=== PATIENT | female | born 1995 | race Caucasian/White ===

== ENCOUNTER 2016-05-24 18:01 | Emergency (ER) | payer OTHER ==
[~2016-05-24] VITALS: Ht 160 cm; Wt 54.5 kg
[~2016-05-24 18:01] MED LIST: AMOXICILLIN250 MG PO; BACTRIM,SEPT1 TABLET PO; FEOSOL325 MG PO; FLAGYL500 MG PO; IBUPROFEN800 MG PO; MACROBID100 MG PO; NOHOMEMEDS; PYRIDIUM100 MG PO; TYLENOL EXTRA500 MG PO; ZOFRAN4 MG PO
[2016-05-24 22:59] VITALS: BP 149/81
== END 2016-05-24 23:01 | disposition home or self-care (01) ==
LOC: EME 18:01
PROC: 0HQ3XZZ Repair Left Ear Skin, External Approach (ICD-10-PCS; principal; 2016-05-24)
PROC: 3E0234Z Introduction of Serum, Toxoid and Vaccine into Muscle, Percutaneous Approach (ICD-10-PCS; 2016-05-24)
DX: S01.312A Laceration without foreign body of left ear, initial encounter (principal); S40.021A Contusion of right upper arm, initial encounter; S40.022A Contusion of left upper arm, initial encounter; S50.12XA Contusion of left forearm, initial encounter; S20.212A Contusion of left front wall of thorax, initial encounter; S40.811A Abrasion of right upper arm, initial encounter; S40.812A Abrasion of left upper arm, initial encounter; M25.532 Pain in left wrist; Y09 Assault by unspecified means; Z23 Encounter for immunization; F17.200 Nicotine dependence, unspecified, uncomplicated
CPT/HCPCS: 71020; 73110; 99281; 99284

== ENCOUNTER 2016-10-31 16:59 | Emergency (ER) | payer SELFPAY ==
[~2016-10-31] VITALS: Ht 167.6 cm; Wt 62.0 kg
[2016-10-31 17:37] LABS: HEMATOCRIT 32.7 % (36.0-46.0); MCH 23.6 PG (29.0-34.0); MCHC 30.6 G/DL (30.0-36.0); MCV 77.3 FL (83-99); MEAN PLAT.VOLUME 10.4 uM^3 (9.5-12.4); PLATELET COUNT 482 K/uL (156-360); RBC DIS.WIDTH-CV 16.3 % (11.8-14.6); RBC DIS.WIDTH-SD 45.7 % (39-53); RED BLOOD COUNT 4.23 M/uL (3.80-5.20)
[2016-10-31 17:47] LABS: CHLORIDE 103 mEq/L (99-109); POTASSIUM 3.4 mEq/L (3.7-5.4); SODIUM 139 mEq/L (136-147)
[2016-10-31 17:49] LABS: GLUCOSE 135 mg/dL (70-99)
[2016-10-31 17:50] LABS: ANION GAP 16 MEQ/L (2-14)
[2016-10-31 17:52] LABS: SERUM ETHYL ALCOHOL 202 mg/dL
[2016-10-31 17:53] LABS: GFR ESTIMATE (CALCULATED) > 59 mL/min/
[2016-10-31 17:54] LABS: UREA NITROGEN (BUN) 13 mg/dL (9-23)
[2016-10-31 19:27] LABS: QUANTITATIVE HCG < 4.0 MIU/ML
[2016-10-31] MEDS ORDERED: NARCAN4 MG NS (21:52)
[2016-10-31 22:05] LABS: ADD MEDTOX COMMENT Y; AMPHETAMINE NEGATIVE (500 ng/mL); BARBITURATES NEGATIVE (200 ng/mL); BENZODIAZEPINES NEGATIVE (150 ng/mL); COCAINE PRESUMPTIVE POSITIVE (150 ng/mL); INTERNAL CONTROLS VALID? YES; METHADONE NEGATIVE (200 ng/mL); METHAMPHETAMINE NEGATIVE (500 ng/mL); OPIATES (MORPHINE) NEGATIVE (100 ng/mL); OXYCODONE NEGATIVE (100 ng/mL); PHENCYCLIDINE NEGATIVE (25 ng/mL); PROPOXYPHENE NEGATIVE (300 ng/mL); THC CANNABINOIDS NEGATIVE (50 ng/mL); TRICYCLIC ANTIDEPRESSANTS NEGATIVE (300 ng/mL)
[2016-10-31 22:51] VITALS: BP 107/62
== END 2016-10-31 22:52 | disposition home or self-care (01) ==
LOC: EDBD 16:59 → EME 16:59
PROVIDERS: Emergency Medicine
DX: E86.0 Dehydration (principal); F12.10 Cannabis abuse, uncomplicated; F17.200 Nicotine dependence, unspecified, uncomplicated
CPT/HCPCS: 80048; 84702; 84999; 85027; 93005; 99281; 99285; G0480; J2310; J7030

== ENCOUNTER 2016-12-22 10:54 | Inpatient (IN) | payer OTHER ==
[~2016-12-22] VITALS: Ht 160 cm; Wt 63.5 kg
[~2016-12-22 10:54] MED LIST changes: +NARCAN4 MG NS
[2016-12-22 11:38] LABS: HEMATOCRIT 37.1 % (36.0-46.0); MCH 22.4 PG (29.0-34.0); MCHC 30.7 G/DL (30.0-36.0); MCV 72.9 FL (83-99); MEAN PLAT.VOLUME 10.4 uM^3 (9.5-12.4); PLATELET COUNT 245 K/uL (156-360); RBC DIS.WIDTH-CV 17.4 % (11.8-14.6); RBC DIS.WIDTH-SD 44.8 % (39-53); RED BLOOD COUNT 5.09 M/uL (3.80-5.20); WHITE BLOOD COUNT 21.2 K/uL (4.1-10.2)
[2016-12-22 11:47] LABS: CHLORIDE 95 mEq/L (99-109); POTASSIUM 3.6 mEq/L (3.7-5.4); SODIUM 133 mEq/L (136-147)
[2016-12-22 11:49] LABS: GLUCOSE 123 mg/dL (70-99)
[2016-12-22 11:50] LABS: ANION GAP 16 MEQ/L (2-14)
[2016-12-22 11:53] LABS: GFR ESTIMATE (CALCULATED) > 59 mL/min/; UREA NITROGEN (BUN) 9 mg/dL (9-23)
[2016-12-22 12:23] LABS: ADD MIUA? YES; BILIRUBIN NEGATIVE; BLOOD SMALL; COLOR YELLOW ((YELLOW)); GLUCOSE (STRIP) NEGATIVE; KETONES NEGATIVE; LEUKOCYTES LARGE; NITRITE POSITIVE; PROTEIN (STRIP) 100; UROBILINOGEN 0.2 MG/DL (0.2-1.0)
[2016-12-22 12:36] LABS: BACTERIA 2+ /HPF; EPITHELIAL CELLS 3+ /HPF; MUCUS NONE SEEN /LPF; RED BLOOD CELLS 0-5 /HPF (0-5); UCUL ADDED? YES; WHITE BLOOD CELLS TNTC /HPF (0-5)
[2016-12-22 14:09] LABS: BASOPHIL COUNT 0.1 K/uL (0-0.1); EOSINOPHIL (%) 0 % (0-5); IMMATURE GRANULOCYTE (%) 2.7 % (0.0-0.7); IMMATURE GRANULOCYTE COUNT 0.6 K/uL; INSTRUMENT ABS NEUTROPHIL CT 17.7 K/uL; LYMPHOCYTE COUNT 0.6 K/uL (1.0-2.8); MONOCYTE (%) 9.8 % (3-12); MONOCYTE COUNT 2.1 K/uL (0-0.8); NEUTROPHIL (%) 84.6 % (45-76); NEUTROPHIL COUNT 17.7 K/uL (1.8-6.4)
[2016-12-22 14:14] LABS: AMPHETAMINE NEGATIVE (500 ng/mL); BARBITURATES NEGATIVE (200 ng/mL); BENZODIAZEPINES NEGATIVE (150 ng/mL); COCAINE NEGATIVE (150 ng/mL); INTERNAL CONTROLS VALID? YES; METHADONE NEGATIVE (200 ng/mL); METHAMPHETAMINE NEGATIVE (500 ng/mL); OPIATES (MORPHINE) NEGATIVE (100 ng/mL); OXYCODONE NEGATIVE (100 ng/mL); PHENCYCLIDINE NEGATIVE (25 ng/mL); PROPOXYPHENE NEGATIVE (300 ng/mL); THC CANNABINOIDS PRESUMPTIVE POSITIVE (50 ng/mL); TRICYCLIC ANTIDEPRESSANTS NEGATIVE (300 ng/mL)
[2016-12-22 14:15] LABS: ADD MEDTOX COMMENT Y
[2016-12-22 14:15] LABS: TOTAL BILIRUBIN 0.6 mg/dL (0.0-1.0)
[2016-12-22 14:16] LABS: ALKALINE PHOSPHATASE 113 IU/L (3-129)
[2016-12-22 14:19] LABS: DIRECT BILIRUBIN 0.3 mg/dL (0.0-0.3)
[2016-12-22 14:20] LABS: LIPASE 13 U/L (1.0-51.0)
[2016-12-22 16:12] LABS: QUANTITATIVE HCG < 4.0 MIU/ML
[2016-12-22] MEDS ORDERED: DEPO-PROVER150 MG/ML IM (17:21)
[2016-12-22] MEDS ORDERED: BENADRYL25 MG PO (17:21)
[2016-12-23 03:17] VITALS: BP 105/59
[2016-12-23 06:51] LABS: HEMATOCRIT 28.9 % (36.0-46.0); MCH 21.8 PG (29.0-34.0); MCHC 29.8 G/DL (30.0-36.0); MCV 73.2 FL (83-99); MEAN PLAT.VOLUME 10.7 uM^3 (9.5-12.4); PLATELET COUNT 203 K/uL (156-360); RBC DIS.WIDTH-CV 17.2 % (11.8-14.6); RBC DIS.WIDTH-SD 45.4 % (39-53); WHITE BLOOD COUNT 16.4 K/uL (4.1-10.2)
[2016-12-23 06:53] LABS: RED BLOOD COUNT 3.95 M/uL (3.80-5.20)
[2016-12-23 07:04] LABS: ANION GAP 10 MEQ/L (2-14); CHLORIDE 106 MEQ/L (99-109); GFR ESTIMATE (CALCULATED) > 59 mL/min/; POTASSIUM 3.4 MEQ/L (3.7-5.4); SAMPLE HEMOLYSIS CHECK 0; SAMPLE ICTERIC CHECK 0; SAMPLE LIPEMIA CHECK 0; SODIUM 136 MEQ/L (136-147); UREA NITROGEN (BUN) 7 mg/dL (9-23)
[2016-12-23 07:09] LABS: GLUCOSE 89 mg/dL (70-99)
[2016-12-23 08:17] VITALS: BP 118/64
[2016-12-23 11:34] VITALS: BP 109/59
[2016-12-23 16:36] VITALS: BP 126/71
[2016-12-24 00:07] VITALS: BP 125/81
[2016-12-24 06:19] LABS: EOSINOPHIL (%) 1.8 % (0-5); EOSINOPHIL COUNT 0.2 K/uL (0-0.3); HEMATOCRIT 28.1 % (36.0-46.0); IMMATURE GRANULOCYTE (%) 1.3 % (0.0-0.7); IMMATURE GRANULOCYTE COUNT 0.2 K/uL; INSTRUMENT ABS NEUTROPHIL CT 8.9 K/uL; LYMPHOCYTE COUNT 0.9 K/uL (1.0-2.8); MCH 21.7 PG (29.0-34.0); MCHC 29.5 G/DL (30.0-36.0); MCV 73.4 FL (83-99); MEAN PLAT.VOLUME 10.4 uM^3 (9.5-12.4); MONOCYTE (%) 11.3 % (3-12); MONOCYTE COUNT 1.3 K/uL (0-0.8); NEUTROPHIL (%) 77.7 % (45-76); NEUTROPHIL COUNT 8.9 K/uL (1.8-6.4); PLATELET COUNT 203 K/uL (156-360); RBC DIS.WIDTH-CV 17.4 % (11.8-14.6); RBC DIS.WIDTH-SD 45.7 % (39-53); RED BLOOD COUNT 3.83 M/uL (3.80-5.20); WHITE BLOOD COUNT 11.4 K/uL (4.1-10.2)
[2016-12-24 08:00] VITALS: BP 145/95
[2016-12-24 08:11] LABS: ANION GAP 11 MEQ/L (2-14); CHLORIDE 111 MEQ/L (99-109); GFR ESTIMATE (CALCULATED) > 59 mL/min/; GLUCOSE 91 mg/dL (70-99); MAGNESIUM 1.3 mg/dl (1.3-2.7); POTASSIUM 3.8 MEQ/L (3.7-5.4); SAMPLE HEMOLYSIS CHECK 0; SAMPLE ICTERIC CHECK 0; SAMPLE LIPEMIA CHECK 0; SODIUM 141 MEQ/L (136-147); UREA NITROGEN (BUN) 7 mg/dL (9-23)
[2016-12-24 12:40] VITALS: BP 134/90
[2016-12-24 13:20] LABS: CHLAMYDIA TRACHOMATIS NEGATIVE; NEISSERIA GONORRHOEAE NEGATIVE
[2016-12-24 15:32] VITALS: BP 128/87
[2016-12-24 19:04] VITALS: BP 135/89
[2016-12-24 23:15] VITALS: BP 123/89
[2016-12-25 04:30] VITALS: BP 132/94
[2016-12-25 06:14] LABS: HEMATOCRIT 28.4 % (36.0-46.0); MCH 22.1 PG (29.0-34.0); MCHC 30.6 G/DL (30.0-36.0); MCV 72.3 FL (83-99); MEAN PLAT.VOLUME 10.5 uM^3 (9.5-12.4); RBC DIS.WIDTH-CV 17.4 % (11.8-14.6); RBC DIS.WIDTH-SD 45.4 % (39-53); RED BLOOD COUNT 3.93 M/uL (3.80-5.20); WHITE BLOOD COUNT 10.4 K/uL (4.1-10.2)
[2016-12-25 06:15] LABS: PLATELET COUNT 284 K/uL (156-360)
[2016-12-25 06:19] LABS: ANION GAP 10 MEQ/L (2-14); CHLORIDE 106 MEQ/L (99-109); GFR ESTIMATE (CALCULATED) > 59 mL/min/; GLUCOSE 80 mg/dL (70-99); POTASSIUM 3.6 MEQ/L (3.7-5.4); SAMPLE HEMOLYSIS CHECK 0; SAMPLE ICTERIC CHECK 0; SAMPLE LIPEMIA CHECK 0; SODIUM 136 MEQ/L (136-147); UREA NITROGEN (BUN) 7 mg/dL (9-23)
[2016-12-25 06:53] VITALS: BP 124/69
[2016-12-25 08:02] VITALS: BP 128/68
[2016-12-25 10:20] VITALS: BP 131/89
[2016-12-25 15:12] VITALS: BP 126/80
[2016-12-25 23:20] VITALS: BP 141/92
[2016-12-26 07:03] LABS: HEMATOCRIT 28.2 % (36.0-46.0); MCH 22.2 PG (29.0-34.0); MCHC 31.2 G/DL (30.0-36.0); MCV 71.2 FL (83-99); MEAN PLAT.VOLUME 10.1 uM^3 (9.5-12.4); PLATELET COUNT 323 K/uL (156-360); RBC DIS.WIDTH-CV 17.3 % (11.8-14.6); RBC DIS.WIDTH-SD 44.5 % (39-53); RED BLOOD COUNT 3.96 M/uL (3.80-5.20); WHITE BLOOD COUNT 9.3 K/uL (4.1-10.2)
[2016-12-26 07:07] LABS: ANION GAP 8 MEQ/L (2-14); CHLORIDE 106 MEQ/L (99-109); GFR ESTIMATE (CALCULATED) > 59 mL/min/; GLUCOSE 93 mg/dL (70-99); POTASSIUM 3.5 MEQ/L (3.7-5.4); SAMPLE HEMOLYSIS CHECK 0; SAMPLE ICTERIC CHECK 0; SAMPLE LIPEMIA CHECK 0; SODIUM 138 MEQ/L (136-147); UREA NITROGEN (BUN) 4 mg/dL (9-23)
[2016-12-26 07:15] VITALS: BP 140/82
[2016-12-26 07:32] VITALS: BP 130/77
[2016-12-26 10:33] VITALS: BP 115/73
[2016-12-26 15:25] VITALS: BP 108/58
[2016-12-26 23:11] VITALS: BP 131/84
[2016-12-27 06:32] LABS: ANION GAP 11 MEQ/L (2-14); CHLORIDE 105 MEQ/L (99-109); GFR ESTIMATE (CALCULATED) > 59 mL/min/; GLUCOSE 100 mg/dL (70-99); POTASSIUM 3.9 MEQ/L (3.7-5.4); SAMPLE HEMOLYSIS CHECK 0; SAMPLE ICTERIC CHECK 0; SAMPLE LIPEMIA CHECK 0; SODIUM 141 MEQ/L (136-147); UREA NITROGEN (BUN) 3 mg/dL (9-23)
[2016-12-27 07:00] VITALS: BP 117/63
[2016-12-27] MEDS ORDERED: CIPROFLOXACIN500 M1 PO (09:26)
== END 2016-12-27 11:06 | disposition home or self-care (01) | DRG 872 ==
LOC: EME 10:54 → EDOF 17:25 → 5EAST 17:25 → ENRESERV 17:31 → CANRESERV 17:36 → ENRESERV 17:36 → 5EAST 18:56 → ENRESERV 19:00 → EDOF 19:09 → ENRESERV 19:11 → 5EAST 19:56
PROVIDERS: Hospitalist; Internal Medicine
DX: A41.51 Sepsis due to Escherichia coli [E. coli] (principal); N10 Acute pyelonephritis; N30.00 Acute cystitis without hematuria; K92.0 Hematemesis; E86.0 Dehydration; E87.6 Hypokalemia; F12.10 Cannabis abuse, uncomplicated; F17.210 Nicotine dependence, cigarettes, uncomplicated; Z88.0 Allergy status to penicillin; Z88.1 Allergy status to other antibiotic agents
CPT/HCPCS: 74176; 80048; 80076; 81003; 83605; 83690; 83735; 84702; 84999; 85025; 85027; 87040; 87077; 87086; 87186; 87491; 87591; 87801; 90686; 99281; 99285; J0696; J1885; J2270; J2405; J3480; J7030; J7050; S0028

== ENCOUNTER 2017-01-03 23:22 | Emergency (ER) | payer OTHER ==
[~2017-01-03] VITALS: Ht 162.6 cm; Wt 62.6 kg
[~2017-01-03 23:22] MED LIST changes: +BENADRYL25 MG PO; +CIPROFLOXACIN500 M1 PO; +DEPO-PROVER150 MG/ML IM
[2017-01-04 02:35] VITALS: BP 121/79
== END 2017-01-04 02:36 | disposition home or self-care (01) ==
LOC: EME 23:22
PROC: 0HQ1XZZ Repair Face Skin, External Approach (ICD-10-PCS; principal; 2017-01-03)
DX: S01.81XA Laceration without foreign body of other part of head, initial encounter (principal); S02.2XXA Fracture of nasal bones, initial encounter for closed fracture; S00.31XA Abrasion of nose, initial encounter; W51.XXXA Accidental striking against or bumped into by another person, initial encounter; W10.9XXA Fall (on) (from) unspecified stairs and steps, initial encounter; F10.99 Alcohol use, unspecified with unspecified alcohol-induced disorder; Z85.828 Personal history of other malignant neoplasm of skin; Z86.73 Personal history of transient ischemic attack (TIA), and cerebral infarction without residual deficits; F17.200 Nicotine dependence, unspecified, uncomplicated
CPT/HCPCS: 70450; 70486; 99281; 99284